=== PATIENT | female | born 1960 | race Caucasian/White ===

== ENCOUNTER 2025-01-13 13:38 | Outpatient (CLI) | payer MEDICARE, OTHER | END 2025-01-13 13:39 | disposition home or self-care (01) | LOC: CSHMAMMO 13:38 | PROVIDERS: ATTEND Student in an Organized Health Care Education/Training Program | DX: Z78.0 Asymptomatic menopausal state (principal); M81.0 Age-related osteoporosis without current pathological fracture | CPT/HCPCS: 77080 ==